=== PATIENT | female | born 1985 | race Caucasian/White ===

== ENCOUNTER 2017-09-19 11:46 | Emergency (ER) | payer OTHER ==
[2017-09-19 13:13] LABS: HCG,QUALITATIVE URINE NEGATIVE (NEGATIVE)
--- NOTE | 2017-09-19 13:16 | C.PDOC ---
History Of Present Illness <Erin Garrett - Last Filed: 09/19/17 19:02> <Anabel Tillman - Last Filed: 09/19/17 21:48> 31 y/o female presents to ED brought by BLS with complaints of right rib pain since yesterday, worse with movement. Patient also reports foul odor in urine. denies dysuria, hematuria, fever, chills, injury to area, trauma, or any other complaints at this time. no nausea or vomiting. (Erin Garrett) History Per: Patient History/Exam Limitations: no limitations Onset/Duration Of Symptoms: Days Current Symptoms Are (Timing): Still Present Severity: Moderate Pain Scale Rating Of: 7 Location Of Pain/Discomfort: Other (right lateral chest/ribs) Radiation Of Pain To:: None Quality Of Discomfort: Unable To Describe Associated Symptoms: denies: Nausea, Vomiting, Chest Pain, Urinary Symptoms Exacerbating Factors: Movement Alleviating Factors: None Recent travel outside of the [place]: No <Erin Garrett - Last Filed: 09/19/17 19:02> <Anabel Tillman - Last Filed: 09/19/17 21:48> Time Seen by Provider: 09/19/17 12:18 Chief Complaint (Nursing): Abdominal Pain Past Medical History Reviewed: Historical Data, Nursing Documentation, Vital Signs - Medical History Other PMH: etoh abuse Surgical History: No Surg Hx Family History: States: No Known Family Hx - Social History Hx Alcohol Use: Yes Hx Substance Use: No - Immunization History Hx Tetanus Toxoid Vaccination: No Hx Influenza Vaccination: No Hx Pneumococcal Vaccination: No <Erin Garrett - Last Filed: 09/19/17 19:02> Vital Signs: Last Vital Signs Temp 98.3 F 09/19/17 20:00 Pulse 101 H 09/19/17 20:00 Resp 17 09/19/17 20:00 BP 132/67 09/19/17 20:00 Pulse Ox 98 09/19/17 20:00 Review Of Systems Constitutional: Negative for: Fever, Chills Cardiovascular: Negative for: Chest Pain, Palpitations Respiratory: Negative for: Cough Gastrointestinal: Positive for: Abdominal Pain (right upper quad), Other. Negative for: Nausea, Vomiting Genitourinary: Positive for: Dysuria, Frequency, Other (foul smelling urine) Musculoskeletal: Positive for: Other (Right rib pain) Skin: Negative for: Rash Neurological: Negative for: Weakness, Numbness <Erin Garrett - Last Filed: 09/19/17 19:02> Physical Exam <Erin Garrett - Last Filed: 09/19/17 19:02> <Anabel Tillman - Last Filed: 09/19/17 21:48> - Physical Exam Additional Physical Exam Comments: Constitutional: appears uncomfortable. etoh noted on breath. WDWN. Head: Normocephalic. Atraumatic. Eyes: PERRL. EOMI. ENT: Moist mucous membranes. Neck: Supple. no midline tenderness Cardiovascular: Regular rate, tachycardic. Chest: right lateral ribs tender to palpation, no ecchymosis noted, no crepitus or step off noted. Respiratory: Clear to auscultation bilaterally. GI: normoactive bowel sounds. mild RUQ tenderness, No rebound, No guarding Back: Right back tenderness Musculoskeletal: No tenderness or swelling of extremities. Skin: No rash. Neurologic: Alert, speech clear. gait not tested. (Erin Garrett) ED Course And Treatment - Laboratory Results Result Diagrams: 09/19/17 13:32 09/19/17 13:32 O2 Sat by Pulse Oximetry: 97 (RA) Pulse Ox Interpretation: Normal <Erin Garrett - Last Filed: 09/19/17 19:02> - Laboratory Results Result Diagrams: 09/19/17 13:32 09/19/17 13:32 Pulse Ox Interpretation: Normal - CT Scan/US CT abd/pel Other Rad Studies (CT/US): Read By Radiologist, Radiology Report Reviewed CT/US Interpretation: EXAM: CT Abdomen and Pelvis Without Intravenous Contrast. EXAM DATE/TIME: Exam ordered 09/19/2017 7:13 PM. CLINICAL HISTORY: 31 years old, female; Pain and injury or trauma; Fall; Initial encounter; Abrasion; Abdominal pain;. Localized; Right upper quadrant (ruq); Additional info: Ruq pain S/P ? fall. TECHNIQUE: Axial computed tomography images of the abdomen and pelvis without intravenous contrast. All CT. scans at this facility use one or more dose reduction techniques, viz.: automated exposure control;. ma/kV adjustment per patient size (including targeted exams where dose is matched to indication; i.e. head); or iterative reconstruction technique. Coronal and sagittal reformatted images were created and reviewed. COMPARISON: No relevant prior studies available. FINDINGS: Lower thorax: There is a small hiatal hernia. ABDOMEN: Liver: The liver is low in density. The liver measures 15 cm in craniocaudal span. Gallbladder and bile ducts: Unremarkable. No calcified stones. No ductal dilation. Pancreas: Unremarkable. No ductal dilation. Spleen: Unremarkable. No splenomegaly. Adrenals: Unremarkable. No mass. Kidneys and ureters: Unremarkable. No obstructing stones. No hydronephrosis. Stomach and bowel: A moderate amount of stool seen throughout the colon. No obstruction. No. mucosal thickening. Appendix: No findings to suggest acute appendicitis. PELVIS: Bladder: Unremarkable. No stones. Reproductive: Unremarkable as visualized. ABDOMEN and PELVIS: Intraperitoneal space: Unremarkable. No free air. No significant fluid collection. Bones/joints: No acute fracture. No dislocation. Soft tissues: Unremarkable. Vasculature: Unremarkable. No abdominal aortic aneurysm. Lymph nodes: Unremarkable. No enlarged lymph nodes. Other findings: Bellybutton ring is present. IMPRESSION: 1. No acute findings. 2. Hepatic steatosis. 3. Small hiatal hernia. Reevaluation Time: 21:48 Reassessment Condition: Improved <Anabel Tillman - Last Filed: 09/19/17 21:48> Medical Decision Making <Erin Garrett - Last Filed: 09/19/17 19:02> <Anabel Tillman - Last Filed: 09/19/17 21:48> Medical Decision Making: pt initially with right sided chest pain; worse with movement, no known hx of trauma. cxr neg for rib fx or infiltrate. pt then with elevated d-dimer, on ocp , with low probability of pe seen on vq scan. pt repeatedly asking for food, says she is hungry. pt still with right sided chest pain, reproducible, lying on stretcher at this time in no apparent discomfort. now noted a quarter sized ecchymosis on right lower anterior ribs with tenderness to anterior ribs in mid axillary line and lateral axillary line with ruq tender as well, sonogram ordered. pt likely fell, has no recall. (Erin Garrett) Disposition - Disposition Disposition Time: 19:02 <Erin Garrett - Last Filed: 09/19/17 19:02> Counseled Patient/Family Regarding: Studies Performed, Diagnosis, Need For Followup <Anabel Tillman - Last Filed: 09/19/17 21:48> - Disposition Referrals: [facility] [Outside] Disposition: HOME/ ROUTINE Condition: FAIR Prescriptions: Ciprofloxacin HCl [Cipro] 500 mg PO BID #10 tablet Instructions: Alcohol Intoxication (DC) Forms: Startapp (Portuguese) - Clinical Impression Clinical Impression: Contusion of rib on right side, Alcohol abuse, Alcohol intoxication - PA / CASTING MOLDER / Resident Statement MD/DO has reviewed & agrees with the documentation as recorded. - Scribe Statement The provider has reviewed the documentation as recorded by the Scribe <Erin Garrett - Last Filed: 09/19/17 19:02> <Anabel Tillman - Last Filed: 09/19/17 21:48> - Scribe Statement Lobo Joshi All medical record entries made by the Scribe were at my direction and personally dictated by me. I have reviewed the chart and agree that the record accurately reflects my personal performance of the history, physical exam, medical decision making, and the department course for this patient. I have also personally directed, reviewed, and agree with the discharge instructions and disposition. (Erin Garrett) Physician Patient Turnover Patient Signed Over To: Anabel Tillman Handoff Comments: pls follow up sono results; if neg, toradol, and eval for sobriety before discharge. tx for uti. <Erin Garrett - Last Filed: 09/19/17 19:02>
[2017-09-19 13:24] LABS: SQUAMOUS EPITHIAL 3 /hpf (0-5); URINE BACTERIA MOD (<OCC); URINE BILIRUBIN NEGATIVE (NEGATIVE); URINE BLOOD 1+ (NEGATIVE); URINE CLARITY Hazy (Clear); URINE COLOR Yellow (YELLOW); URINE GLUCOSE (UA) NORMAL (Normal); URINE LEUKOCYTE ESTERASE NEG Leu/uL (Negative); URINE NITRATE POSITIVE (NEGATIVE); URINE PROTEIN 2+ mg/dL (NEGATIVE); URINE UROBILINOGEN NORMAL mg/dL (0.2-1.0)
[2017-09-19 13:39] LABS: BASO % 0.8 % (0.0-2.0); EOS % 0.5 % (0.0-4.0); HEMOGLOBIN 13.5 g/dL (11.0-16.0); LYMPH # 1.4 K/uL (1.0-4.3); LYMPH % 24.7 % (20.0-40.0); MEAN CELL VOLUME 107.2 fL (81.0-99.0); MEAN CORPUSCULAR HGB CONC 34.5 g/dL (33.0-37.0); MEAN PLATELET VOLUME 8.2 fL (7.2-11.7); MONO # 0.7 K/uL (0.0-0.8); MONO % 12.3 % (0.0-10.0); NEUT # 3.4 K/uL (1.8-7.0); NEUT % 61.7 % (50.0-75.0); RBC 3.66 Mil/uL (3.80-5.20); RED CELL DISTRIBUTION WIDTH 14.9 % (11.5-14.5); WHITE BLOOD COUNT 5.5 K/uL (4.8-10.8)
[2017-09-19 13:58] LABS: ALB/GLOB RATIO 1.3 (1.0-2.1); ALBUMIN 4.3 g/dL (3.5-5.0); ALT/SGPT 27 U/L (9-52); AST/SGOT 71 U/L (14-36); BLOOD UREA NITROGEN 9 mg/dL (7-17); CALCIUM 7.8 mg/dl (8.6-10.4); GFR AFRICAN-AMERICAN > 60; GFR NON-AFRICAN AMERICAN > 60; LIPASE 263 U/L (23-300)
--- NOTE | 2017-09-19 15:24 | RAD ---
PROCEDURE: Radiographs of the Chest and Right Ribs. HISTORY: righ rib pain COMPARISON: None available. TECHNIQUE: Frontal radiograph of the chest and multiple oblique radiographs of the right ribs were obtained. FINDINGS: RIGHT RIBS: No fracture or focal lesion visualized. LUNGS: Clear. PLEURA: No pneumothorax or pleural fluid. CARDIOVASCULAR: Normal sized heart. No pulmonary vascular congestion. OTHER FINDINGS: None. IMPRESSION: Unremarkable radiographs of the chest and right ribs. No right rib fracture.
--- NOTE | 2017-09-19 17:41 | NM ---
COMPARISON: . Chest radiograph can right ribs Clinical history: Right chest pain and elevated D-dimer TECHNIQUE: 7.2 mCi technetium 99-m Xe-133 Gas. 3.4 mCI technetium 99-m MAA administered intravenously. FINDINGS: VENTILATION COMPONENT: Normal. PERFUSION COMPONENT: Heterogeneous distribution of radionuclide. No geographic, segmental, lobar abnormalities apparent on the present examination. IMPRESSION: Low probability ventilation perfusion scan for pulmonary embolism.
[2017-09-19] MEDS: Sodium Chloride 0.9% 1,000 ML IV ONE (20:02)
--- NOTE | 2017-09-19 20:45 | CT ---
EXAM: CT Abdomen and Pelvis Without Intravenous Contrast EXAM DATE/TIME: Exam ordered 09/19/2017 7:13 PM CLINICAL HISTORY: 31 years old, female; Pain and injury or trauma; Fall; Initial encounter; Abrasion; Abdominal pain; Localized; Right upper quadrant (ruq); Additional info: Ruq pain S/P ? fall TECHNIQUE: Axial computed tomography images of the abdomen and pelvis without intravenous contrast. All CT scans at this facility use one or more dose reduction techniques, viz.: automated exposure control; ma/kV adjustment per patient size (including targeted exams where dose is matched to indication; i.e. head); or iterative reconstruction technique. Coronal and sagittal reformatted images were created and reviewed. COMPARISON: No relevant prior studies available. FINDINGS: Lower thorax: There is a small hiatal hernia. ABDOMEN: Liver: The liver is low in density. The liver measures 15 cm in craniocaudal span. Gallbladder and bile ducts: Unremarkable. No calcified stones. No ductal dilation. Pancreas: Unremarkable. No ductal dilation. Spleen: Unremarkable. No splenomegaly. Adrenals: Unremarkable. No mass. Kidneys and ureters: Unremarkable. No obstructing stones. No hydronephrosis. Stomach and bowel: A moderate amount of stool seen throughout the colon. No obstruction. No mucosal thickening. Appendix: No findings to suggest acute appendicitis. PELVIS: Bladder: Unremarkable. No stones. Reproductive: Unremarkable as visualized. ABDOMEN and PELVIS: Intraperitoneal space: Unremarkable. No free air. No significant fluid collection. Bones/joints: No acute fracture. No dislocation. Soft tissues: Unremarkable. Vasculature: Unremarkable. No abdominal aortic aneurysm. Lymph nodes: Unremarkable. No enlarged lymph nodes. Other findings: Bellybutton ring is present. IMPRESSION: 1. No acute findings. 2. Hepatic steatosis. 3. Small hiatal hernia.
[2017-09-19 21:14] LABS: BARBITURATES, UR NEGATIVE (NEGATIVE); BENZODIAZEPINES, UR NEGATIVE (NEGATIVE); OPIATES, UR NEGATIVE (NEGATIVE); PHENCYCLIDINE, UR NEGATIVE (NEGATIVE)
[2017-09-19 22:01] VITALS: BP 122/74; PULSE 89; RESP 18; TEMP 98.4; O2SAT 99
== END 2017-09-19 22:02 | disposition home or self-care (01) ==
LOC: C.ER 11:46
DX: S20.211A Contusion of right front wall of thorax, initial encounter (principal); X58.XXXA Exposure to other specified factors, initial encounter; F10.129 Alcohol abuse with intoxication, unspecified; Y90.8 Blood alcohol level of 240 mg/100 ml or more
CPT/HCPCS: 71101; 74176; 78582; 80053; 80320; 80324; 80345; 80346; 80349; 80353; 80358; 80361; 81001; 83690; 83992; 84703; 85025; 85378; 87086; 87181; 96374; 99285; A9558; J7040

== ENCOUNTER 2017-09-23 11:27 | Inpatient (IN) | payer OTHER ==
--- NOTE | 2017-09-23 12:07 | C.PDOC ---
History Of Present Illness 31F c/o LOC just [employer]. 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 she c/o pain in the back of her head. she says similar episode occurred about 1 month ago- at that time she was taking care of her niece who told her she fell on the floor and was "shaking." she did not seek medical care at that time. she does drink etoh daily and says before prior to both instances she had been cutting back significantly on her etoh intake. she denies any drug use. Time Seen by Provider: 09/23/17 11:47 Chief Complaint (Nursing): Seizure Past Medical History Vital Signs: Last Vital Signs Temp 99.8 F H 09/23/17 11:47 Pulse 115 H 09/23/17 15:21 Resp 16 09/23/17 15:21 BP 131/83 09/23/17 15:21 Pulse Ox 100 09/23/17 15:21 - Medical History PMH: Seizures Family History: States: Other Other Family History: nc - Social History Hx Alcohol Use: Yes Hx Substance Use: No - Immunization History Hx Tetanus Toxoid Vaccination: No Hx Influenza Vaccination: No Hx Pneumococcal Vaccination: No Review Of Systems Constitutional: Negative for: Fever, Chills, Weakness, Malaise Eyes: Negative for: Vision Change Cardiovascular: Negative for: Chest Pain Respiratory: Negative for: Cough, Shortness of Breath Gastrointestinal: Negative for: Nausea, Vomiting, Abdominal Pain Genitourinary: Negative for: Dysuria Musculoskeletal: Negative for: Neck Pain, Back Pain Neurological: Positive for: Headache. Negative for: Weakness, Numbness, Altered Mental Status Physical Exam - Physical Exam Appears: Well, Non-toxic, No Acute Distress Skin: Warm, Dry Head: Other (posterior scalp hematoma) Eye(s): bilateral: PERRL, EOMI Nose: No Epistaxis Oral Mucosa: Moist Tongue: No Swelling, Laceration (small lateral), No Bleeding Lips: No Swelling Neck: Normal ROM, No Midline Cervical Tenderness Chest: No Tenderness Cardiovascular: Rhythm Regular Respiratory: No Decreased Breath Sounds, No Accessory Muscle Use, No Rales, No Rhonchi, No Stridor, No Wheezing Gastrointestinal/Abdominal: Soft, No Tenderness Extremity: No Deformity, No Swelling Neurological/Psych: Oriented x3, No Cerebellar Signs, Normal Motor, Normal Sensation, Other (no focal deficits) ED Course And Treatment - Laboratory Results Result Diagrams: 09/23/17 12:20 09/23/17 12:20 O2 Sat by Pulse Oximetry: 100 Medical Decision Making Medical Decision Makin the pt had a seizure while I was speaking with her,lasting about 30 sec followed by post-ictal period. ativan given. jaqueline Jackson who will admit. PROCEDURE: CT HEAD WITHOUT CONTRAST. HISTORY: fall head trauma COMPARISON: No priors TECHNIQUE: Axial computed tomography images were obtained through the head/brain without intravenous contrast. Radiation dose: Total exam DLP = 916 mGy-cm. This CT exam was performed using one or more of the following dose reduction techniques: Automated exposure control, adjustment of the mA and/or kV according to patient size, and/or use of iterative reconstruction technique. FINDINGS: HEMORRHAGE: No intracranial hemorrhage. BRAIN: No mass effect or edema. No atrophy or chronic microvascular ischemic changes. VENTRICLES: Unremarkable. No hydrocephalus. CALVARIUM: Unremarkable. PARANASAL SINUSES: Unremarkable as visualized. No significant inflammatory changes. MASTOID AIR CELLS: Unremarkable as visualized. No inflammatory changes. OTHER FINDINGS: Left posterior parietal convexity scalp soft tissue swelling is seen. IMPRESSION: Unremarkable CT scan of the brain without contrast. Left posterior parietal scalp soft tissue swelling. Disposition - Disposition Disposition: HOSPITALIZED Disposition Time: 14:51 Condition: STABLE - Clinical Impression Clinical Impression: Seizure, Alcohol withdrawal
[2017-09-23 12:23] LABS: BASO # 0.1 K/uL (0.0-0.2); BASO % 0.6 % (0.0-2.0); EOS % 0.1 % (0.0-4.0); HEMOGLOBIN 14.1 g/dL (11.0-16.0); LYMPH # 0.6 K/uL (1.0-4.3); LYMPH % 6.3 % (20.0-40.0); MEAN CELL VOLUME 105.9 fL (81.0-99.0); MEAN CORPUSCULAR HEMOGLOBIN 36.8 pg (27.0-31.0); MEAN CORPUSCULAR HGB CONC 34.8 g/dL (33.0-37.0); MEAN PLATELET VOLUME 8.7 fL (7.2-11.7); MONO # 0.6 K/uL (0.0-0.8); MONO % 6.4 % (0.0-10.0); NEUT # 8.5 K/uL (1.8-7.0); NEUT % 86.6 % (50.0-75.0); PLATELET COUNT 218 K/uL (130-400); RBC 3.84 Mil/uL (3.80-5.20); RED CELL DISTRIBUTION WIDTH 14.1 % (11.5-14.5)
[2017-09-23 12:32] LABS: WHITE BLOOD COUNT 9.8 K/uL (4.8-10.8)
[2017-09-23 12:35] LABS: ALB/GLOB RATIO 1.3 (1.0-2.1); ALBUMIN 4.4 g/dL (3.5-5.0); CALCIUM 8.3 mg/dl (8.6-10.4); GFR AFRICAN-AMERICAN > 60; GFR NON-AFRICAN AMERICAN > 60
[2017-09-23 12:39] LABS: ALT/SGPT 23 U/L (9-52); AST/SGOT 76 U/L (14-36); BLOOD UREA NITROGEN 8 mg/dL (7-17)
[2017-09-23 12:44] LABS: SQUAMOUS EPITHIAL 3 /hpf (0-5); URINE BACTERIA FEW (<OCC); URINE BILIRUBIN NEGATIVE (NEGATIVE); URINE BLOOD 1+ (NEGATIVE); URINE CLARITY Clear (Clear); URINE COLOR Amber (YELLOW); URINE GLUCOSE (UA) NORMAL (Normal); URINE LEUKOCYTE ESTERASE NEG Leu/uL (Negative); URINE NITRATE NEGATIVE (NEGATIVE); URINE PROTEIN 3+ mg/dL (NEGATIVE); URINE UROBILINOGEN NORMAL mg/dL (0.2-1.0)
[2017-09-23 12:45] LABS: HCG,QUALITATIVE URINE NEGATIVE (NEGATIVE)
--- NOTE | 2017-09-23 13:20 | CT ---
PROCEDURE: CT HEAD WITHOUT CONTRAST. HISTORY: fall head trauma COMPARISON: No priors TECHNIQUE: Axial computed tomography images were obtained through the head/brain without intravenous contrast. Radiation dose: Total exam DLP = 916 mGy-cm. This CT exam was performed using one or more of the following dose reduction techniques: Automated exposure control, adjustment of the mA and/or kV according to patient size, and/or use of iterative reconstruction technique. FINDINGS: HEMORRHAGE: No intracranial hemorrhage. BRAIN: No mass effect or edema. No atrophy or chronic microvascular ischemic changes. VENTRICLES: Unremarkable. No hydrocephalus. CALVARIUM: Unremarkable. PARANASAL SINUSES: Unremarkable as visualized. No significant inflammatory changes. MASTOID AIR CELLS: Unremarkable as visualized. No inflammatory changes. OTHER FINDINGS: Left posterior parietal convexity scalp soft tissue swelling is seen. IMPRESSION: Unremarkable CT scan of the brain without contrast. Left posterior parietal scalp soft tissue swelling.
[2017-09-23 13:24] LABS: BANDS 2 % (0-2); LYMPHOCYTE 6 % (20-40); MONOCYTE 6 % (0-10); NEUTROPHIL 86 % (50-75); PLATELET ESTIMATE NORMAL (NORMAL); TOTAL CELLS COUNTED 100
[2017-09-23 13:25] LABS: ANISOCYTOSIS SLIGHT; POLYCHROMIC SLIGHT; STOMATOCYTES SLIGHT
--- NOTE | 2017-09-23 16:00 | CP.PCM.HP ---
Past Patient History - Infectious Disease Hx of Infectious Diseases: None - Past Social History Smoking Status: Current Some Days Smoker - NEUROLOGICAL Hx Seizures: Yes - PSYCHIATRIC Hx Substance Use: No Meds Allergies/Adverse Reactions: Allergies Allergy/AdvReac Type Severity Reaction Status Date / Time shellfish derived Allergy Severe ANAPHYLAXIS Verified 09/23/17 11:35 Results - Vital Signs Recent Vital Signs: Last Vital Signs Temp 99.8 F H 09/23/17 11:47 Pulse 115 H 09/23/17 15:21 Resp 16 09/23/17 15:21 BP 131/83 09/23/17 15:21 Pulse Ox 100 09/23/17 15:21 - Labs Result Diagrams: 09/23/17 12:20 09/23/17 12:20 Labs: Laboratory Results - last 24 hr 09/23/17 09/23/17 09/23/17 11:39 12:20 12:20 WBC 9.8 D RBC 3.84 Hgb 14.1 Hct 40.7 MCV 105.9 H MCH 36.8 H MCHC 34.8 RDW 14.1 Plt Count 218 MPV 8.7 Neut % (Auto) 86.6 H Lymph % (Auto) 6.3 L [place] % (Auto) 6.4 Eos % (Auto) 0.1 Baso % (Auto) 0.6 Neut # 8.5 H Lymph # 0.6 L [place] # 0.6 Eos # 0.0 Baso # 0.1 Neutrophils % (Manual) 86 H Band Neutrophils % 2 Lymphocytes % (Manual) 6 L Monocytes % (Manual) 6 Platelet Estimate Normal Polychromasia Slight Anisocytosis (manual) Slight Macrocytosis (manual) Slight Stomatocytes Slight Sodium 129 L Potassium 3.7 Chloride 95 L Carbon Dioxide 23 Anion Gap 14 BUN 8 Creatinine 0.6 L Est GFR ( Amer) > 60 Est GFR (Non-Af Amer) > 60 POC Glucose (mg/dL) 127 H Random Glucose 99 Calcium 8.3 L Total Bilirubin 0.9 AST 76 H ALT 23 Alkaline Phosphatase 61 Total Protein 7.9 Albumin 4.4 Globulin 3.5 Albumin/Globulin Ratio 1.3 Urine Color Urine Clarity Urine pH Ur Specific Skippers Urine Protein Urine Glucose (UA) Urine Ketones Urine Blood Urine Nitrate Urine Bilirubin Urine Urobilinogen Ur Leukocyte Esterase Urine WBC (Auto) Urine RBC (Auto) Ur Squamous Epith Cells Urine Bacteria Urine HCG, Qual Alcohol, Quantitative < 10 09/23/17 12:34 WBC RBC Hgb Hct MCV MCH MCHC RDW Plt Count MPV Neut % (Auto) Lymph % (Auto) [place] % (Auto) Eos % (Auto) Baso % (Auto) Neut # Lymph # [place] # Eos # Baso # Neutrophils % (Manual) Band Neutrophils % Lymphocytes % (Manual) Monocytes % (Manual) Platelet Estimate Polychromasia Anisocytosis (manual) Macrocytosis (manual) Stomatocytes Sodium Potassium Chloride Carbon Dioxide Anion Gap BUN Creatinine Est GFR ( Amer) Est GFR (Non-Af Amer) POC Glucose (mg/dL) Random Glucose Calcium Total Bilirubin AST ALT Alkaline Phosphatase Total Protein Albumin Globulin Albumin/Globulin Ratio Urine Color Julienne Urine Clarity Clear Urine pH 5.0 Ur Specific Skippers 1.026 Urine Protein 3+ H Urine Glucose (UA) Normal Urine Ketones Negative Urine Blood 1+ H Urine Nitrate Negative Urine Bilirubin Negative Urine Urobilinogen Normal Ur Leukocyte Esterase Neg Urine WBC (Auto) 5 Urine RBC (Auto) 5 H Ur Squamous Epith Cells 3 Urine Bacteria Few H Urine HCG, Qual Negative Alcohol, Quantitative
[2017-09-23] MEDS ORDERED: Folic Acid 1 MG, Thiamine 100 MG, Multivitamin (MVI) 10 ML in Dextrose 5% In Water 1,00... IV SCH (16:30)
[2017-09-23] MEDS: Enoxaparin 40 mg Syringe SC SCH (20:27)
[2017-09-23] MEDS: Pantoprazole 40 mg EC Tab PO SCH (20:27)
[2017-09-24] MEDS: Enoxaparin 40 mg Syringe SC SCH (10:19)
[2017-09-24] MEDS: Pantoprazole 40 mg EC Tab PO SCH (10:19)
[2017-09-24] MEDS: Oxycodone/Acetaminophen 5/325 mg Tab PO PRN ×3 (11:13→22:37)
--- NOTE | 2017-09-24 20:32 | CP.PCM.PN ---
Subjective - Date & Time of Evaluation Date of Evaluation: 09/24/17 Time of Evaluation: 14:00 - Subjective Subjective: clinically same Objective - Vital Signs/Intake and Output Vital Signs (last 24 hours): Temp Pulse Resp BP Pulse Ox 98.6 F 74 18 146/92 H 100 09/24/17 16:00 09/24/17 16:00 09/24/17 16:00 09/24/17 16:00 09/24/17 16:00 - Medications Medications: Current Medications Enoxaparin Sodium (Lovenox) 40 mg SC DAILY [facility] Last Admin: 09/24/17 10:19 Dose: 40 mg Folic Acid (Folic Acid) 1 mg PO DAILY [facility] Last Admin: 09/24/17 17:40 Dose: 1 mg Levetiracetam (Keppra) 500 mg PO BID [facility] Last Admin: 09/24/17 17:40 Dose: 500 mg Oxycodone/Acetaminophen (Percocet 5/325 Mg Tab) 1 tab PO Q4H PRN PRN Reason: Pain, moderate (4-7) Stop: 09/27/17 10:29 Last Admin: 09/24/17 16:34 Dose: 1 tab Pantoprazole Sodium (Protonix Ec Tab) 40 mg PO DAILY [facility] Last Admin: 09/24/17 10:19 Dose: 40 mg Thiamine HCl (Vitamin B1 Tab) 100 mg PO DAILY [facility] Last Admin: 09/24/17 17:40 Dose: 100 mg Tramadol HCl (Ultram) 50 mg PO TID PRN PRN Reason: Pain, MILD (1-3) Zolpidem Tartrate (Ambien) 5 mg PO HS PRN PRN Reason: Insomnia Last Admin: 09/23/17 21:26 Dose: 5 mg - Labs Labs: 09/23/17 12:20 09/23/17 12:20
[2017-09-25 01:17] VITALS: RESP 20
[2017-09-25] MEDS: Oxycodone/Acetaminophen 5/325 mg Tab PO PRN ×2 (07:46→15:41)
[2017-09-25] MEDS: Enoxaparin 40 mg Syringe SC SCH (09:16)
[2017-09-25] MEDS: Pantoprazole 40 mg EC Tab PO SCH (09:16)
--- NOTE | 2017-09-25 09:46 | CP.PCM.PN ---
Subjective - Date & Time of Evaluation Date of Evaluation: 09/25/17 Time of Evaluation: 09:42 - Subjective Subjective: Progress Note for Dr. Jackson's Service Pt seen and examined at bedside today. She denies any acute event overnight. She has a video on her cellphone from the syncopal event that occurred prior to admission. She offers this information which appears to show her at work, suddenly falling on the floor, and have generalized shaking. She states that she is unable to recall these events, the episode lasted 8minutes per video evidence and after the event she was very tired. Objective - Vital Signs/Intake and Output Vital Signs (last 24 hours): Temp Pulse Resp BP Pulse Ox 98.2 F 83 20 118/78 100 09/25/17 07:20 09/25/17 07:20 09/25/17 07:20 09/25/17 07:20 09/25/17 07:20 - Medications Medications: Current Medications Enoxaparin Sodium (Lovenox) 40 mg SC DAILY [facility] Last Admin: 09/25/17 09:16 Dose: 40 mg Folic Acid (Folic Acid) 1 mg PO DAILY [facility] Last Admin: 09/25/17 09:16 Dose: 1 mg Levetiracetam (Keppra) 500 mg PO BID [facility] Last Admin: 09/25/17 09:17 Dose: 500 mg Oxycodone/Acetaminophen (Percocet 5/325 Mg Tab) 1 tab PO Q4H PRN PRN Reason: Pain, moderate (4-7) Stop: 09/27/17 10:29 Last Admin: 09/25/17 07:46 Dose: 1 tab Pantoprazole Sodium (Protonix Ec Tab) 40 mg PO DAILY [facility] Last Admin: 09/25/17 09:16 Dose: 40 mg Thiamine HCl (Vitamin B1 Tab) 100 mg PO DAILY [facility] Last Admin: 09/25/17 09:16 Dose: 100 mg Tramadol HCl (Ultram) 50 mg PO TID PRN PRN Reason: Pain, MILD (1-3) Zolpidem Tartrate (Ambien) 5 mg PO HS PRN PRN Reason: Insomnia Last Admin: 09/24/17 22:33 Dose: 5 mg - Labs Labs: 09/23/17 12:20 09/23/17 12:20 - Constitutional Appears: No Acute Distress - Head Exam Head Exam: ATRAUMATIC, NORMAL INSPECTION - Eye Exam Eye Exam: EOMI, Normal appearance - ENT Exam ENT Exam: Mucous Membranes Moist - Respiratory Exam Respiratory Exam: Clear to Ausculation Bilateral, NORMAL BREATHING PATTERN - Cardiovascular Exam Cardiovascular Exam: REGULAR RHYTHM, +S1, +S2 - GI/Abdominal Exam GI & Abdominal Exam: Soft. absent: Tenderness - Neurological Exam Neurological Exam: Alert, Awake, Oriented x3 - Psychiatric Exam Psychiatric exam: Normal Affect, Normal Mood - Skin Skin Exam: Dry, Warm Assessment and Plan - Assessment and Plan (Free Text) Plan: Syncope Likely secondary to seizure Video recording of syncopal episode on cell phone was reviewed Neuro consult placed to Dr. Srinivasan cleary appreciated started on Keppra 500mg PO BID Ultram 50mg PO TID prn mild pain Percocet 1T PO q4hrs prn breakthrough pain Head CT- negative Fall risk protocol Seizure precautions EtOH abuse Folic Acid, Thiamine Fall risk protocol Seizure precautions Insomnia Ambien 5mg PO qhs Prophylaxis Lovenox 40mg SC daily Protonix 40mg PO daily Case discussed with Dr. Jackson All management as per Dr. Jackson
[2017-09-25 12:38] LABS: BASO # 0.1 K/uL (0.0-0.2); BASO % 0.8 % (0.0-2.0); EOS # 0.1 K/uL (0.0-0.7); EOS % 1.6 % (0.0-4.0); HEMOGLOBIN 13.3 g/dL (11.0-16.0); LYMPH # 1.2 K/uL (1.0-4.3); LYMPH % 17.5 % (20.0-40.0); MEAN CELL VOLUME 106.8 fL (81.0-99.0); MEAN CORPUSCULAR HEMOGLOBIN 37.1 pg (27.0-31.0); MEAN CORPUSCULAR HGB CONC 34.7 g/dL (33.0-37.0); MEAN PLATELET VOLUME 9.5 fL (7.2-11.7); MONO # 0.6 K/uL (0.0-0.8); MONO % 9.1 % (0.0-10.0); NEUT # 4.8 K/uL (1.8-7.0); RBC 3.59 Mil/uL (3.80-5.20); RED CELL DISTRIBUTION WIDTH 14.1 % (11.5-14.5); WHITE BLOOD COUNT 6.8 K/uL (4.8-10.8)
[2017-09-25 13:06] LABS: ALB/GLOB RATIO 1.2 (1.0-2.1); ALBUMIN 4.3 g/dL (3.5-5.0); ALT/SGPT 27 U/L (9-52); AST/SGOT 44 U/L (14-36); BLOOD UREA NITROGEN 11 mg/dL (7-17); CALCIUM 8.8 mg/dl (8.6-10.4); GFR AFRICAN-AMERICAN > 60; GFR NON-AFRICAN AMERICAN > 60
[2017-09-25] MEDS ORDERED: Gadodiamide 287 mg/ml 20 ml IV ONE (16:48)
--- NOTE | 2017-09-25 17:53 | CP.PCM.PCO ---
Physician Communication Note - Physician Communication Note Physician Communication Note: C/W KEPPRA AND F./U OUTPT. SEIZURE SEC TO SLEEP DEPRIIVATION.,
--- NOTE | 2017-09-25 18:26 | MRI ---
PROCEDURE: MRI of the brain dated 09/25/2017 HISTORY: Seizure. COMPARISON: Comparison made with CT scan of the brain dated 09/23/2017 TECHNIQUE: Multiplanar, multisequence MR images of the brain were obtained with and without intravenous contrast enhancement. 12 cc Omniscan injected for this examination FINDINGS: HEMORRHAGE: No acute parenchymal, subarachnoid or extra-axial hemorrhage. No evidence of hemosiderin deposition is identified on gradient echo weighted sequence. DWI: No evidence of an acute or early subacute infarction seen on diffusion imaging. . BRAIN PARENCHYMA: No mass,mass effect or edema. No atrophy or chronic microvascular ischemic changes. No definitive evidence of mesial temporal sclerosis Mild generalized volume loss. ENHANCEMENT: There are no enhancing parenchymal nor extra-axial masses or collections. VENTRICLES: No obstructive hydrocephalus CRANIUM: Left and mid posterior superior parietal scalp hematoma. ORBITS: Orbits and contents appear grossly unremarkable. PARANASAL SINUSES/MASTOIDS: Clear VASCULAR SYSTEM: Skull base flow voids intact. OTHER FINDINGS: None . IMPRESSION: No acute intracranial hemorrhage or infarct. No enhancing lesions seen. Very mild generalized volume loss. Left left and mid posterior superior scalp contusion.
--- NOTE | 2017-09-25 18:36 | CON ---
DATE: 09/25/2017 NEUROLOGY CONSULTATION CHIEF COMPLAINT: Seizure. 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 She did not seek any medical care at that time. She does drink EtOH daily and says before or prior to her both incidents, she had cut back significantly on EtOH intake. Her U-tox was positive on 09/19/2017 for elevated blood alcohol level, but now it is negative. She had seizure-like events and it was a little bit postictal. She is currently on tramadol 50 mg p.o. t.i.d. for pain, which we should avoid since she has had questionable-seizure like event. We should replace it with Fioricet instead of opiates. She is on Keppra 500 mg p.o. b.i.d. No further seizure-like events. CT scan of the head showed no acute intracranial abnormality except for some left posterior parietal scalp tissue swelling. She underwent an MRI of the brain, undergoing as I have seen in the machine, which the diffusion weighted image preliminary showed no acute intracranial abnormalities. There is some left parietal scalp soft tissue swelling. She does have a history of poor sleep hygiene. MEDICATIONS: Reviewed via nurse reconciliation sheet. ALLERGIES: ALLERGIC TO SHELLFISH . REVIEW OF SYSTEMS: A 14-point review of system is negative except as in the HPI. PAST MEDICAL HISTORY: History of syncopal event in the past. PHYSICAL EXAMINATION: VITAL SIGNS: Temperature 98.2, pulse rate 83, blood pressure 118/70, respiratory rate of 20, oxygen saturation 100% via room air. GENERAL: Patient is sitting up in bed, in no acute distress. HEENT: Atraumatic and normocephalic. PERRLA. Extraocular muscles are intact. NECK: Supple. No JVD. No adenopathy noted. LUNGS: Clear to auscultation. No adventitious sounds. HEART: S1 and S2. Normal rate and rhythm. No murmurs, rubs, or gallops. ABDOMEN: Soft, nontender, nondistended. Bowel sounds are present. EXTREMITIES: No clubbing. No cyanosis. Peripheral pulses are 2+ felt bilaterally. NEUROLOGIC: Patient is alert and oriented to person, place, month, and year. Speech is fluent without any errors. Cranial nerves II through XII are intact. Motor exam: Moves all extremities equally. No pronator drift seen. Sensory exam: Light touch, pinprick, proprioception and vibration are intact. DTRs are 2+ throughout. Coordination: [id number] intact. Gait is deferred for now. LABORATORY DATA: Sodium is 132, potassium 4.0, chloride 98, carbon dioxide 23, BUN of 11, creatinine 0.7, and random glucose of 118. ASSESSMENT AND PLAN: This is a 31-year-old woman with history of syncopal episodes in the past, who has a syncopal event followed by some generalized clonic-tonic movements, which is followed by postictal phenomena. MRI of the brain showed no acute intracranial abnormalities on preliminary; awaiting the official report. CT of the head showed no acute intracranial abnormalities except the left posterior parietal scalp hematoma from hitting her head. At this time, it demonstrates likely a syncopal convulsion of unknown etiology. RECOMMENDATIONS: 1. Continue with Keppra 500 mg p.o. b.i.d. for seizure prophylaxis. 2. Advised sleep hygiene. 3. Avoid tramadol or any opiates to lower the seizure threshold, and if she has a headache, add Fioricet one tablet p.o. q. 6 hours for acute onset of headache. 4. I will follow her up as an outpatient in my office and for medication adjustment. I recommend no driving for at least 90 days until cleared by us in an outpatient setting. Once again, thank you for this consult. Fahad Dixon MD
--- NOTE | 2017-09-25 18:57 | CP.PCM.PN ---
Subjective - Date & Time of Evaluation Date of Evaluation: 09/25/17 Time of Evaluation: 13:20 - Subjective Subjective: clinically same Objective - Vital Signs/Intake and Output Vital Signs (last 24 hours): Temp Pulse Resp BP Pulse Ox 98.1 F 76 20 143/94 H 99 09/25/17 15:20 09/25/17 15:20 09/25/17 15:20 09/25/17 15:20 09/25/17 15:20 - Medications Medications: Current Medications Enoxaparin Sodium (Lovenox) 40 mg SC DAILY [facility] Last Admin: 09/25/17 09:16 Dose: 40 mg Folic Acid (Folic Acid) 1 mg PO DAILY [facility] Last Admin: 09/25/17 09:16 Dose: 1 mg Levetiracetam (Keppra) 500 mg PO BID [facility] Last Admin: 09/25/17 17:18 Dose: 500 mg Oxycodone/Acetaminophen (Percocet 5/325 Mg Tab) 1 tab PO Q4H PRN PRN Reason: Pain, moderate (4-7) Stop: 09/27/17 10:29 Last Admin: 09/25/17 15:41 Dose: 1 tab Pantoprazole Sodium (Protonix Ec Tab) 40 mg PO DAILY [facility] Last Admin: 09/25/17 09:16 Dose: 40 mg Thiamine HCl (Vitamin B1 Tab) 100 mg PO DAILY [facility] Last Admin: 09/25/17 09:16 Dose: 100 mg Tramadol HCl (Ultram) 50 mg PO TID PRN PRN Reason: Pain, MILD (1-3) Zolpidem Tartrate (Ambien) 5 mg PO HS PRN PRN Reason: Insomnia Last Admin: 09/24/17 22:33 Dose: 5 mg - Labs Labs: 09/25/17 12:31 09/25/17 12:31
[2017-09-26] MEDS: Oxycodone/Acetaminophen 5/325 mg Tab PO PRN ×2 (00:43→13:34)
[2017-09-26 04:37] VITALS: O2SAT 97
[2017-09-26 06:26] LABS: BASO # 0.1 K/uL (0.0-0.2); BASO % 1.2 % (0.0-2.0); EOS # 0.3 K/uL (0.0-0.7); EOS % 4.4 % (0.0-4.0); HEMOGLOBIN 12.3 g/dL (11.0-16.0); LYMPH # 1.4 K/uL (1.0-4.3); LYMPH % 23.7 % (20.0-40.0); MEAN CELL VOLUME 107.5 fL (81.0-99.0); MEAN CORPUSCULAR HEMOGLOBIN 36.2 pg (27.0-31.0); MEAN CORPUSCULAR HGB CONC 33.7 g/dL (33.0-37.0); MEAN PLATELET VOLUME 9.4 fL (7.2-11.7); MONO # 0.7 K/uL (0.0-0.8); MONO % 11.1 % (0.0-10.0); NEUT # 3.6 K/uL (1.8-7.0); NEUT % 59.6 % (50.0-75.0); NRBC % 0.1 % (0.0-2.0); RBC 3.39 Mil/uL (3.80-5.20); RED CELL DISTRIBUTION WIDTH 13.7 % (11.5-14.5); WHITE BLOOD COUNT 6.1 K/uL (4.8-10.8)
[2017-09-26 08:24] LABS: ALB/GLOB RATIO 1.2 (1.0-2.1); ALBUMIN 3.6 g/dL (3.5-5.0); ALT/SGPT 20 U/L (9-52); AST/SGOT 35 U/L (14-36); BLOOD UREA NITROGEN 9 mg/dL (7-17); CALCIUM 8.1 mg/dl (8.6-10.4); GFR AFRICAN-AMERICAN > 60; GFR NON-AFRICAN AMERICAN > 60
--- NOTE | 2017-09-26 08:38 | CP.PCM.PN ---
Subjective - Date & Time of Evaluation Date of Evaluation: 09/26/17 Objective - Vital Signs/Intake and Output Vital Signs (last 24 hours): Temp Pulse Resp BP Pulse Ox 97.6 F 71 20 129/82 97 09/26/17 04:02 09/26/17 04:11 09/26/17 04:02 09/26/17 04:02 09/26/17 04:02 Intake and Output: 09/26/17 09/26/17 06:59 18:59 Intake Total 120 Balance 120 - Medications Medications: Current Medications Enoxaparin Sodium (Lovenox) 40 mg SC DAILY [facility] Last Admin: 09/25/17 09:16 Dose: 40 mg Folic Acid (Folic Acid) 1 mg PO DAILY [facility] Last Admin: 09/25/17 09:16 Dose: 1 mg Levetiracetam (Keppra) 500 mg PO BID [facility] Last Admin: 09/25/17 17:18 Dose: 500 mg Oxycodone/Acetaminophen (Percocet 5/325 Mg Tab) 1 tab PO Q4H PRN PRN Reason: Pain, moderate (4-7) Stop: 09/27/17 10:29 Last Admin: 09/26/17 00:43 Dose: 1 tab Pantoprazole Sodium (Protonix Ec Tab) 40 mg PO DAILY [facility] Last Admin: 09/25/17 09:16 Dose: 40 mg Thiamine HCl (Vitamin B1 Tab) 100 mg PO DAILY [facility] Last Admin: 09/25/17 09:16 Dose: 100 mg Tramadol HCl (Ultram) 50 mg PO TID PRN PRN Reason: Pain, MILD (1-3) Last Admin: 09/25/17 20:15 Dose: 50 mg Zolpidem Tartrate (Ambien) 5 mg PO HS PRN PRN Reason: Insomnia Last Admin: 09/25/17 22:49 Dose: 5 mg - Labs Labs: 09/26/17 06:21 09/26/17 06:21
[2017-09-26 09:24] VITALS: BP 124/75; PULSE 89; TEMP 98
[2017-09-26] MEDS: Enoxaparin 40 mg Syringe SC SCH (10:15)
[2017-09-26] MEDS: Pantoprazole 40 mg EC Tab PO SCH (10:16)
--- NOTE | 2017-09-26 13:27 | CP.PCM.PN ---
Subjective - Date & Time of Evaluation Date of Evaluation: 09/26/17 Time of Evaluation: 13:24 - Subjective Subjective: Progress Note for Dr. Jackson's Service Pt was seen at bedside today with Dr. Jackson. There were no acute events overnight. Patient denied any symptoms of dizziness, weakness, syncope, near- syncope, tremors, fevers, chills, nausea, vomiting. Dr. Dixon (neuro) has indicated that he would like to see her as an outpatient, once she is discharged. Dr. Jackson will be seeing the patient tomorrow at 10am in his office. The patient will be discharged today with a script to continue taking Keppra 500mg PO BID. She will need follow up with both Dr. Jackson and Dr. Dixon. Case was discussed with Dr. Jackson All management as per Dr. Manuel Bailey D.O. PGY2 Objective - Vital Signs/Intake and Output Vital Signs (last 24 hours): Temp Pulse Resp BP Pulse Ox 98.0 F 89 20 124/75 97 09/26/17 08:15 09/26/17 08:15 09/26/17 08:15 09/26/17 08:15 09/26/17 08:15 Intake and Output: 09/26/17 09/26/17 06:59 18:59 Intake Total 120 Balance 120 - Medications Medications: Current Medications Enoxaparin Sodium (Lovenox) 40 mg SC DAILY [facility] Last Admin: 09/26/17 10:15 Dose: 40 mg Folic Acid (Folic Acid) 1 mg PO DAILY [facility] Last Admin: 09/26/17 10:16 Dose: 1 mg Levetiracetam (Keppra) 500 mg PO BID [facility] Last Admin: 09/26/17 10:16 Dose: 500 mg Oxycodone/Acetaminophen (Percocet 5/325 Mg Tab) 1 tab PO Q4H PRN PRN Reason: Pain, moderate (4-7) Stop: 09/27/17 10:29 Last Admin: 09/26/17 00:43 Dose: 1 tab Pantoprazole Sodium (Protonix Ec Tab) 40 mg PO DAILY [facility] Last Admin: 09/26/17 10:16 Dose: 40 mg Thiamine HCl (Vitamin B1 Tab) 100 mg PO DAILY [facility] Last Admin: 09/26/17 10:16 Dose: 100 mg Tramadol HCl (Ultram) 50 mg PO TID PRN PRN Reason: Pain, MILD (1-3) Last Admin: 09/25/17 20:15 Dose: 50 mg Zolpidem Tartrate (Ambien) 5 mg PO HS PRN PRN Reason: Insomnia Last Admin: 09/25/17 22:49 Dose: 5 mg - Labs Labs: 09/26/17 06:21 09/26/17 06:21
== END 2017-09-26 15:32 | disposition home or self-care (01) | DRG 889 ==
LOC: C.ER 11:27 → C.6T 14:48 → C.9E 14:48
PROVIDERS: ADMIT Internal Medicine Nephrology; ATTEND Internal Medicine Nephrology
DX: R56.9 Unspecified convulsions (principal); F10.230 Alcohol dependence with withdrawal, uncomplicated; R55 Syncope and collapse; G47.00 Insomnia, unspecified; W18.30XA Fall on same level, unspecified, initial encounter; S00.03XA Contusion of scalp, initial encounter; F17.210 Nicotine dependence, cigarettes, uncomplicated; Y90.0 Blood alcohol level of less than 20 mg/100 ml; Z91.013 Allergy to seafood

== ENCOUNTER 2019-01-03 06:48 | Emergency (ER) | payer OTHER ==
--- NOTE | 2019-01-03 07:40 | C.PDOC ---
History Of Present Illness 33 y/o female with a PMHx of hypertension and seizures presents to the ED with complaint of multiple seizures occurring 3 weeks ago, one last week, and one 3 days ago. This morning the patients parents heard her fall in her bedroom and found her seizing. On arrival to the ED patient is alert and oriented, now complaining of a headache and right ankle pain, which she reports injuring 3 days ago during the prior seizure. Patient reports compliance with her medications, including oxcarbazepine and propranolol. Otherwise she denies any other injuries or complaints. Time Seen by Provider: 01/03/19 07:19 Chief Complaint (Nursing): Seizure History Per: Patient History/Exam Limitations: no limitations Recent Seizure Activity Began: Just Before Arrival Number Of Seizures: One Quality Of Seizure: Generalized Additional History Per: Family Past Medical History Reviewed: Historical Data, Nursing Documentation, Vital Signs Vital Signs: Last Vital Signs Temp 98.9 F 01/03/19 06:55 Pulse 97 H 01/03/19 06:55 Resp 22 01/03/19 06:55 BP 157/109 H 01/03/19 06:55 Pulse Ox 96 01/03/19 06:55 - Medical History PMH: HTN, Seizures Denies: Chronic Kidney Disease Family History: States: Unknown Family Hx - Social History Hx Tobacco Use: Yes Hx Alcohol Use: Yes Hx Substance Use: No - Immunization History Hx Tetanus Toxoid Vaccination: No Hx Influenza Vaccination: No Hx Pneumococcal Vaccination: No Review Of Systems Except As Marked, All Systems Reviewed And Found Negative. Constitutional: Negative for: Fever, Chills Eyes: Negative for: Vision Change Cardiovascular: Negative for: Chest Pain Respiratory: Negative for: Shortness of Breath Gastrointestinal: Negative for: Nausea, Vomiting, Diarrhea Musculoskeletal: Positive for: Foot Pain (right ankle). Negative for: Back Pain Skin: Positive for: Bruising (to chin and right ankle) Neurological: Positive for: Seizures, Headache. Negative for: Weakness, Numbness Physical Exam - Physical Exam Appears: Non-toxic, No Acute Distress Skin: Warm, Dry Head: Normacephalic, Tenderness (Tender over the right parietal scalp, no gross deformity or palpable fracture), Other (Old ecchymosis noted to chin from prior seizure) Eye(s): bilateral: Normal Inspection, PERRL, EOMI Ear(s): Bilateral: Normal Oral Mucosa: Moist Teeth: Normal Dentition Throat: Normal (airway is patent), No Erythema, No Exudate Neck: Normal ROM, No Midline Cervical Tenderness, Supple Chest: Symmetrical Cardiovascular: Rhythm Regular, No Murmur Respiratory: Normal Breath Sounds, No Accessory Muscle Use Gastrointestinal/Abdominal: Soft, No Tenderness, No Distention Extremity: Normal ROM, Capillary Refill (< 2 sec), No Deformity, Swelling (mild swelling noted to right ankle, pt reports prior injury 3 days ago), Other (Tender over mid right tib-fib, with mild swelling) Pulses: Left Dorsalis Pedis: Normal, Right Dorsalis Pedis: Normal Neurological/Psych: Oriented x3, Normal Speech, Normal Cognition, Normal Cranial Nerves, Normal Motor, Normal Sensation, Other (No focal deficits) ED Course And Treatment - Laboratory Results Result Diagrams: 01/03/19 08:02 01/03/19 08:02 O2 Sat by Pulse Oximetry: 96 (RA) Pulse Ox Interpretation: Normal - Other Rad XR R Ankle X-Ray: Read By Radiologist Interpretation: Accession No. : [id number]. Patient Name / ID : BETH BENTON / [id number]. Exam Date : 01/03/2019 07:55:01 ( Approved ). Study Comment : Sex / Age : F / 33Y. Creator : Hilda Mills. Dictator : Hilda Mills. Dub Room Engineer : Dope Worker : Hilda Hernández. Approver2 : Report Date : 01/03/2019 08:55:21. My Comment : . Date of service: 01/03/2019. PROCEDURE: Right Ankle Radiographs. HISTORY: r/o fx. COMPARISON: zz. TECHNIQUE: 3 views obtained. FINDINGS: BONES: Lateral view is oblique limiting optimal evaluation of the tibiotalar joint. There is perceived vertically oriented thin lucencies over the posterior malleolus on this view. Because of this appearance, a nondisplaced posterior malleolar fracture cannot be excluded./is possible. Associated soft tissue swelling mostly medially. A repeat lateral ankle view may clarify. Noncontrast CT should be definitive if indicated. JOINTS: Normal. No osteoarthritis. Ankle mortise maintained. Talar dome intact. SOFT TISSUES: Soft tissue swelling mostly medial ankle aspect. OTHER FINDINGS: None. IMPRESSION: Possible posterior malleolar nondisplaced fracture versus superimposition of posterior fibular and tibial cortical margins-see above considerations. No dislocation. Soft tissue swelling - CT Scan/US CT Head Other Rad Studies (CT/US): Read By Radiologist, Radiology Report Reviewed CT/US Interpretation: Accession No. : [id number]. Patient Name / ID : BETH BENTON / [id number]. Exam Date : 01/03/2019 08:25:00 ( Approved ). Study Comment : Sex / Age : F / 33Y. Creator : Hilda Mills. Dictator : Hilda Mills. Dub Room Engineer : Dope Worker : Hilda Hernández. Approver2 : Report Date : 01/03/2019 08:41:49. My Comment : . Date of service: 01/03/2019. PROCEDURE: CT HEAD WITHOUT CONTRAST. HISTORY: head injury. COMPARISON: CT head 09/23/2017. TECHNIQUE: Axial computed tomography images were obtained through the head/brain without intravenous contrast. Radiation dose: Total exam DLP = 1156.37 mGy-cm. This CT exam was performed using one or more of the following dose reduction techniques: Automated exposure control, adjustment of the mA and/or kV according to patient size, and/or use of iterative reconstruction technique. FINDINGS: HEMORRHAGE: No intracranial hemorrhage. BRAIN: No mass effect or edema. There is mild cerebral atrophy-given patient's age. There are patchy bilateral posterior deep white matter mostly posterior periventricular and occipital deep white matter hypodensities compatible with chronic microvascular ischemic changes.-these are unchanged with the September 23 2017 exam. VENTRICLES: Unremarkable. No hydrocephalus. CALVARIUM: No calvarial fracture noted. Overlying the left parietal calvarium-a a 4 cm transverse by 3 cm anterior posterior by 6 mm cephalo caudal depth superficial scalp hematoma is noted. PARANASAL SINUSES: Minimal ethmoidal sinus mucosal thickening. No larger more significant appearing air-fluid level seen. MASTOID AIR CELLS: Unremarkable as visualized. No inflammatory changes. OTHER FINDINGS: Along each external auditory canal, dermal coarse dystrophic calcifications are present these are unchanged. IMPRESSION: No intracranial hemorrhage or mass effect. Similar patchy periventricular and deep white matter hypodensities-similar appearing with the CT head from 09/23/2017. Atrophy is greater than expected given patient's age. However known history of seizures. Findings as detailed above. Interval left parietal scalp soft tissue swelling-hematoma. No calvarial fracture. Medical Decision Making Medical Decision Making: Impression: Seizure disorder Plan: - Basic blood work - Urine preg POC - Right ankle x-ray - CT Head Imaging and labs reviewed. 9:07 Paged podiatry resident, who will come to evaluate patient in the ED. X-ray of the tib/fib pending. Tib/Fib XR reviewed, showing proximal fibula fracture. 10:15 Patient seen and evaluated by podiatry resident, who spoke with Dr. Ruiz. Patient cleared for discharge home and is to follow up outpatient with podiatry clinic. Posterior splint applied to right lower extremity. Plan is to give patient crutches, physical therapy paged. PT attempted to educate patient on crutch use, however patient was unable to successfully use the crutches. Walker provided instead. Disposition - Disposition Referrals: Jose Luis Gutierrez MD [Staff Provider] - Munira Ruiz DPM [Staff Provider] - Disposition: HOME/ ROUTINE Disposition Time: 11:38 Condition: GOOD Additional Instructions: Please follow up with Dr Ruiz in clinic and ambulate with the crutches for safety. Take motrin for pain. Prescriptions: Ibuprofen [Motrin] 600 mg PO Q6 #20 tab Walker [Rolling Walker] 1 dev XX PRN PRN #1 dev PRN Reason: Other Instructions: Ankle Fracture, Fibula Fracture Forms: Goozzy (Mongolian) - Clinical Impression Clinical Impression: Tonic-clonic seizure, Fibula fracture, Ankle fracture - Scribe Statement The provider has reviewed the documentation as recorded by the Olvin Taylor Provider Attestation: All medical record entries made by the Mary Joibdimitri were at my direction and personally dictated by me. I have reviewed the chart and agree that the record accurately reflects my personal performance of the history, physical exam, medical decision making, and the department course for this patient. I have also personally directed, reviewed, and agree with the discharge instructions and disposition.
[2019-01-03 08:06] LABS: BASO # 0.3 K/uL (0.0-0.2); EOS # 0.2 K/uL (0.0-0.7); LYMPH # 1.5 K/uL (1.0-4.3); MONO # 0.4 K/uL (0.0-0.8); NEUT # 2.6 K/uL (1.8-7.0); NRBC % 0.1 % (0.0-2.0); RED CELL DISTRIBUTION WIDTH 14.3 % (11.5-14.5)
[2019-01-03 08:13] LABS: EOS % 4.2 % (0.0-4.0); LYMPH % 29.5 % (20.0-40.0); MEAN CORPUSCULAR HEMOGLOBIN 34.7 pg (27.0-31.0); MEAN CORPUSCULAR HGB CONC 34.3 g/dL (33.0-37.0); MEAN PLATELET VOLUME 8.2 fL (7.2-11.7); MONO % 8.1 % (0.0-10.0); NEUT % 52.2 % (50.0-75.0); PLATELET COUNT 224 K/uL (130-400); RBC 4.12 Mil/uL (3.80-5.20)
[2019-01-03 08:21] LABS: ALB/GLOB RATIO 1.5 (1.0-2.1); ALBUMIN 4.6 g/dL (3.5-5.0); ALT/SGPT 25 U/L (9-52); AST/SGOT 81 U/L (14-36); BLOOD UREA NITROGEN 8 mg/dL (7-17); CALCIUM 8.6 mg/dl (8.6-10.4); GFR NON-AFRICAN AMERICAN > 60
--- NOTE | 2019-01-03 08:45 | CT ---
Date of service: 01/03/2019 PROCEDURE: CT HEAD WITHOUT CONTRAST. HISTORY: head injury COMPARISON: CT head 09/23/2017 TECHNIQUE: Axial computed tomography images were obtained through the head/brain without intravenous contrast. Radiation dose: Total exam DLP = 1156.37 mGy-cm. This CT exam was performed using one or more of the following dose reduction techniques: Automated exposure control, adjustment of the mA and/or kV according to patient size, and/or use of iterative reconstruction technique. FINDINGS: HEMORRHAGE: No intracranial hemorrhage. BRAIN: No mass effect or edema. There is mild cerebral atrophy-given patient's age. There are patchy bilateral posterior deep white matter mostly posterior periventricular and occipital deep white matter hypodensities compatible with chronic microvascular ischemic changes.-these are unchanged with the September 23 2017 exam. VENTRICLES: Unremarkable. No hydrocephalus. CALVARIUM: No calvarial fracture noted. Overlying the left parietal calvarium-a a 4 cm transverse by 3 cm anterior posterior by 6 mm cephalo caudal depth superficial scalp hematoma is noted. PARANASAL SINUSES: Minimal ethmoidal sinus mucosal thickening. No larger more significant appearing air-fluid level seen. MASTOID AIR CELLS: Unremarkable as visualized. No inflammatory changes. OTHER FINDINGS: Along each external auditory canal, dermal coarse dystrophic calcifications are present these are unchanged. IMPRESSION: No intracranial hemorrhage or mass effect. Similar patchy periventricular and deep white matter hypodensities-similar appearing with the CT head from 09/23/2017. Atrophy is greater than expected given patient's age. However known history of seizures. Findings as detailed above. Interval left parietal scalp soft tissue swelling-hematoma. No calvarial fracture.
[2019-01-03 08:47] LABS: HEMOGLOBIN 14.3 g/dL (11.0-16.0); MEAN CELL VOLUME 101.2 fL (81.0-99.0)
--- NOTE | 2019-01-03 08:58 | RAD ---
Date of service: 01/03/2019 PROCEDURE: Right Ankle Radiographs. HISTORY: r/o fx COMPARISON: zz TECHNIQUE: 3 views obtained. FINDINGS: BONES: Lateral view is oblique limiting optimal evaluation of the tibiotalar joint. There is perceived vertically oriented thin lucencies over the posterior malleolus on this view. Because of this appearance, a nondisplaced posterior malleolar fracture cannot be excluded./is possible. Associated soft tissue swelling mostly medially A repeat lateral ankle view may clarify. Noncontrast CT should be definitive if indicated. JOINTS: Normal. No osteoarthritis. Ankle mortise maintained. Talar dome intact SOFT TISSUES: Soft tissue swelling mostly medial ankle aspect OTHER FINDINGS: None. IMPRESSION: Possible posterior malleolar nondisplaced fracture versus superimposition of posterior fibular and tibial cortical margins-see above considerations. No dislocation. Soft tissue swelling Comments: Study marked for PA review .
[2019-01-03 09:27] LABS: EOSINOPHIL 5 % (0-4); LYMPHOCYTE 35 % (20-40); MONOCYTE 4 % (0-10); NEUTROPHIL 56 % (50-75); TOTAL CELLS COUNTED 100
[2019-01-03 09:30] LABS: PLATELET ESTIMATE NORMAL (NORMAL)
--- NOTE | 2019-01-03 10:18 | CP.PCM.CON ---
History of Present Illness - History of Present Illness History of Present Illness: Podiatry Consult Note: Dr. Ruiz 33 year old female patient, with PMHx of Epilepsy, seen and examined in the ED for right ankle pain. Patient states that she had a seizure 3 days ago and fell, hitting her head. She reports ambulating the past few days, however today her ankle starting hurting more especially with ambulation. She has not taken any pain medication for the pain. She is accompanied by her mom at today's visit. Patient denies nausea/vomiting/fever/shortness of breath/chest pain/ numbness/tingling to lower extremity. PMHx: Epilepsy, HTN PSHx: denies SH: former tobacco use (quit 6 months ago) ALL: NKDA Past Patient History - Infectious Disease Hx of Infectious Diseases: None - Past Medical History & Family History Past Medical History?: No - Past Social History Smoking Status: Light Smoker < 10 Cigarettes Daily - CARDIAC Hx Hypertension: Yes - PULMONARY Hx Respiratory Disorders: No - NEUROLOGICAL Hx Seizures: Yes - HEENT Hx HEENT Problems: No - RENAL Hx Chronic Kidney Disease: No - ENDOCRINE/METABOLIC Hx Endocrine Disorders: No - HEMATOLOGICAL/ONCOLOGICAL Hx Blood Disorders: No - INTEGUMENTARY Hx Dermatological Problems: No - MUSCULOSKELETAL/RHEUMATOLOGICAL Hx Musculoskeletal Disorders: No Hx Falls: Yes - GASTROINTESTINAL Hx Gastrointestinal Disorders: No - GENITOURINARY/GYNECOLOGICAL Hx Genitourinary Disorders: No - PSYCHIATRIC Hx Substance Use: No - SURGICAL HISTORY Hx Surgeries: No - ANESTHESIA Hx Anesthesia: No Meds Home Medications: Home Medication List Medication Instructions Recorded Confirmed Type Ibuprofen [Motrin] 600 mg PO Q6 #20 tab 01/03/19 Rx Allergies/Adverse Reactions: Allergies Allergy/AdvReac Type Severity Reaction Status Date / Time shellfish derived Allergy Severe ANAPHYLAXIS Verified 01/03/19 07:05 Physical Exam - Constitutional Appears: Non-toxic, No Acute Distress - Extremities Exam Additional comments: Vascular: DP/PT 2/4, CFT < 3 seconds, TG warm to warm, + 1 edema noted to fibular head and ankle circumfrentially Ortho: Pain with palpation of fibular head , pain with ankle inversion/eversion, no pain with calf compression, MMT 4/5 secondary to guarding Neuro: Gross and protective sensation intact Derm: No open lesions, no erythema, faint ecchymosis noted to anterior aspect of leg, no clinical signs of infection - Neurological Exam Neurological exam: Alert, Oriented x3 - Psychiatric Exam Psychiatric exam: Normal Affect, Normal Mood - Skin Skin Exam: Warm Results - Vital Signs Recent Vital Signs: Last Vital Signs Temp 98.9 F 01/03/19 06:55 Pulse 74 01/03/19 08:48 Resp 14 01/03/19 08:48 BP 144/88 01/03/19 08:48 Pulse Ox 96 01/03/19 09:21 - Labs Result Diagrams: 01/03/19 08:02 01/03/19 08:02 Labs: Laboratory Results - last 24 hr 01/03/19 01/03/19 01/03/19 08:02 08:02 08:28 WBC 5.0 RBC 4.12 Hgb 14.3 D Hct 41.7 MCV 101.2 H D MCH 34.7 H MCHC 34.3 RDW 14.3 Plt Count 224 MPV 8.2 Neut % (Auto) 52.2 Lymph % (Auto) 29.5 Harlan % (Auto) 8.1 Eos % (Auto) 4.2 H Baso % (Auto) 6.0 H Neut # (Auto) 2.6 Lymph # (Auto) 1.5 Harlan # (Auto) 0.4 Eos # (Auto) 0.2 Baso # (Auto) 0.3 H Neutrophils % (Manual) 56 Lymphocytes % (Manual) 35 Monocytes % (Manual) 4 Eosinophils % (Manual) 5 H Platelet Estimate Normal RBC Morphology Normal Sodium 139 Potassium 4.1 Chloride 100 Carbon Dioxide 27 Anion Gap 17 BUN 8 Creatinine 0.5 L Est GFR ( Amer) > 60 Est GFR (Non-Af Amer) > 60 Random Glucose 104 Calcium 8.6 Total Bilirubin 0.3 AST 81 H D ALT 25 Alkaline Phosphatase 70 Total Protein 7.6 Albumin 4.6 Globulin 3.0 Albumin/Globulin Ratio 1.5 Urine HCG, Qual Negative Assessment & Plan - Assessment and Plan (Free Text) Assessment: 33 year old female patient, with PMHx of epilepsy, with right high fibular fracture and possible posterior malleoli fracture Plan: Patient seen and evaluated R ankle and tib/fib x-rays taken; possible posterior malleolar nondisplaced fracture vs superimpostition of posterior fibular and tibial cortical margins. High fibular fracture. Strict NWB to the right lower extremity with the use of crutches Patient placed in posterior splint Educated patient on RICE protocol OTC pain medication as needed Patient expressed verbal understanding at this time Patient to follow up in Podiatry clinic on Monday with Dr. Ruiz - Date & Time Date: 01/03/19 Time: 10:12
--- NOTE | 2019-01-03 11:29 | RAD ---
Date of service: 01/03/2019 PROCEDURE: Radiographs of the right tibia and fibula. HISTORY: r/o fx COMPARISON: None available TECHNIQUE: Frontal and lateral views obtained. 2 views obtained. FINDINGS: BONES: Oblique fracture nondisplaced proximal fibular diaphysis metaphysis JOINT SPACES: Unremarkable. OTHER FINDINGS: None. IMPRESSION: Nondisplaced proximal fibular diaphyseal-metaphyseal fracture. Comments: Study marked for PA review .
[2019-01-03 11:42] VITALS: BP 145/89; PULSE 87; RESP 17; TEMP 99.2
[2019-01-04 12:15] VITALS: O2SAT 96
== END 2019-01-03 11:41 | disposition home or self-care (01) ==
LOC: C.ER 06:48
DX: S82.831A Other fracture of upper and lower end of right fibula, initial encounter for closed fracture (principal); W18.30XA Fall on same level, unspecified, initial encounter; G40.409 Other generalized epilepsy and epileptic syndromes, not intractable, without status epilepticus
CPT/HCPCS: 29515; 70450; 73590; 73610; 80053; 81025; 84703; 85025; 97116; 97161; 99285; G8978; G8979; G8980

== ENCOUNTER 2019-01-21 10:12 | Outpatient (CLI) | payer OTHER | END 2019-01-21 10:13 | disposition home or self-care (01) | LOC: C.RADH 10:12 | DX: S82.63XA Displaced fracture of lateral malleolus of unspecified fibula, initial encounter for closed fracture (principal) ==